=== PATIENT | female | born 1975 | race Hispanic/Latino ===

== ENCOUNTER 2018-08-23 11:06 | Emergency (ER) | payer SELFPAY ==
[2018-08-23] MEDS ORDERED: Lidocaine 1% (PF) 30 ML VIAL ONE (12:33)
[2018-08-23] MEDS ORDERED: Adacel (T-DAP) 0.5 ML SYRINGE ONE (12:35)
--- NOTE | 2018-08-23 13:12 | RAD ---
RIGHT HAND THREE VIEWS: INDICATIONS: Laceration. Injury with pain. FINDINGS: There is no fracture or dislocation. No radiopaque foreign body. IMPRESSION: No acute osseous abnormality of the left hand. POS: [facility]
== END 2018-08-23 13:19 | disposition home or self-care (01) ==
LOC: ERS 11:06
DX: S61.012A Laceration without foreign body of left thumb without damage to nail, initial encounter (principal); W31.89XA Contact with other specified machinery, initial encounter
CPT/HCPCS: 12001; 90471; 90715; J2001

== ENCOUNTER 2018-08-30 10:00 | Emergency (ER) | payer SELFPAY | END 2018-08-30 11:08 | disposition home or self-care (01) | LOC: ERS 10:00 | DX: S61.012D Laceration without foreign body of left thumb without damage to nail, subsequent encounter (principal); X58.XXXD Exposure to other specified factors, subsequent encounter ==